=== PATIENT | female | born 1945 | race Caucasian/White ===

== ENCOUNTER 2022-04-16 15:03 | Outpatient (CLI) | payer MEDICARE, BC | END 2022-04-16 15:04 | disposition home or self-care (01) | LOC: SCSRAD 15:03 | PROVIDERS: ATTEND Family Medicine Sports Medicine | DX: M25.562 Pain in left knee (principal); M17.12 Unilateral primary osteoarthritis, left knee; M25.462 Effusion, left knee; M11.262 Other chondrocalcinosis, left knee ==

== ENCOUNTER 2022-07-31 11:55 | Outpatient (CLI) | payer MEDICARE, BC | END 2022-07-31 11:56 | disposition home or self-care (01) | LOC: SCSRAD 11:55 | PROVIDERS: ATTEND Family Medicine Sports Medicine | DX: M25.512 Pain in left shoulder (principal); M25.511 Pain in right shoulder; M25.811 Other specified joint disorders, right shoulder ==

== ENCOUNTER 2022-12-17 15:02 | Outpatient (CLI) | payer MEDICARE, BC | END 2022-12-17 15:03 | disposition home or self-care (01) | LOC: MRI 15:02 | PROVIDERS: ATTEND Orthopaedic Surgery Hand Surgery | DX: M47.22 Other spondylosis with radiculopathy, cervical region (principal); M48.02 Spinal stenosis, cervical region | CPT/HCPCS: 72141 ==

== ENCOUNTER 2024-01-26 08:54 | Outpatient (CLI) | payer MEDICARE, BC | END 2024-01-26 08:55 | disposition home or self-care (01) | LOC: BICULT 08:54 | PROVIDERS: ATTEND Family Medicine Sports Medicine | DX: R10.11 Right upper quadrant pain (principal) | CPT/HCPCS: 76700 ==